=== PATIENT | male | born 1935 | race Caucasian/White ===

== ENCOUNTER 2017-04-20 11:22 | Inpatient (IN) | payer BC, MEDICARE ==
[~2017-04-20] VITALS: Ht 177.8 cm; Wt 67.1 kg
[~2017-04-20 11:22] MED LIST: AMLO10TA2 PO; ATOR10TA9 PO; CELE200C PO; HYDR-3342 PO; LEVO75TA5 PO; METO200T2 PO; METO25TA35 PO; Methocarbamol PO; NITR0.4T SL; OXYC1TAB7 PO; QUET25TA PO; SITA100T PO; VALS160T3 PO; VENL75TA PO
[2017-04-20] MEDS ORDERED: SODIUM CHLORIDE FLUSH 10ML SYR IVF PRN (12:00)
[2017-04-20] MEDS ORDERED: GLUC500T11 PO (12:02)
[2017-04-20] MEDS ORDERED: ATOR40TA PO (12:02)
[2017-04-20] MEDS ORDERED: CLOP75TA52 PO (12:02)
[2017-04-20] MEDS ORDERED: ASCO500T8 PO (12:02)
[2017-04-20] MEDS ORDERED: QUET50TA5 PO (12:02)
[2017-04-20] MEDS: SODIUM CHLORIDE 0.9% 1,000 ML IV SCH ×2 (12:22→20:22)
[2017-04-20] MEDS ORDERED: DEXTROSE 4 GM TAB.CHEW PO PRN (12:30)
[2017-04-20] MEDS ORDERED: ONDANSETRON 2MG/ML, 2ML IVPush PRN (12:30)
[2017-04-20] MEDS ORDERED: HYDROcodone/APAP 5/325 TABLET PO PRN (12:30)
[2017-04-20] MEDS: INSULIN ASPART 100 UNITS/ML, PEN SQ-INSULIN SCH ×3 (12:30→20:46)
[2017-04-20] MEDS ORDERED: GLUCAGON 1 MG IM PRN (12:30)
[2017-04-20] MEDS ORDERED: DEXTROSE 50%, 50ML SYRINGE IVPush PRN (12:30)
[2017-04-20] MEDS ORDERED: LABETALOL 5MG/ML, 20ML IVPush PRN (12:30)
[2017-04-20] MEDS ORDERED: ACETAMINOPHEN 325 MG TABLET PO PRN (12:30)
[2017-04-20] MEDS ORDERED: BISACODYL 10 MG SUPP PR PRN (12:30)
[2017-04-20] MEDS ORDERED: morphine SULFATE 10 MG/ML, 1ML IVPush PRN (12:30)
[2017-04-20] MEDS ORDERED: ENALAPRILAT 1.25 MG/ML, 2ML IVPush PRN (12:30)
[2017-04-20 13:31] LABS: BLOOD UREA NITROGEN 34 mg/dL (7-18)
[2017-04-20 19:52] VITALS: BP 148/70
[2017-04-20 19:55] VITALS: BP 146/70
[2017-04-20 19:58] VITALS: BP 134/70
[2017-04-20] MEDS: SODIUM CHLORIDE FLUSH 10ML SYR IVF SCH (20:45)
[2017-04-20] MEDS: ATORVASTATIN 40 MG TABLET PO SCH (20:46)
[2017-04-20] MEDS: DOCUSATE 100 MG CAPSULE PO SCH (20:46)
[2017-04-20] MEDS: QUETIAPINE 25MG TABLET PO SCH (20:46)
[2017-04-20 20:48] VITALS: BP 175/72
[2017-04-21] MEDS: SODIUM CHLORIDE 0.9% 1,000 ML IV SCH ×2 (00:26→09:44)
[2017-04-21 00:58] VITALS: BP 125/70
[2017-04-21] MEDS ORDERED: HALOPERIDOL 5 MG/ML IM ONE (01:30)
[2017-04-21] MEDS: LEVOTHYROXINE 75 MCG TABLET PO SCH ×2 (05:39→09:00)
[2017-04-21 05:46] LABS: HEMATOCRIT 38.3 % (39.2-51.8); WHITE BLOOD COUNT 7.3 x10^3/uL (3.4-10)
[2017-04-21 06:02] LABS: ASPARTATE AMINO TRANSFERASE 14 U/L (15-37); BLOOD UREA NITROGEN 29 mg/dL (7-18)
[2017-04-21] MEDS: INSULIN ASPART 100 UNITS/ML, PEN SQ-INSULIN SCH ×4 (07:00→21:00)
[2017-04-21 07:43] VITALS: BP 141/65
[2017-04-21] MEDS: ASCORBIC ACID 500 MG TABLET PO SCH (09:44)
[2017-04-21] MEDS: CLOPIDOGREL 75 MG TABLET PO SCH (09:44)
[2017-04-21] MEDS: DOCUSATE 100 MG CAPSULE PO SCH ×2 (09:44→22:03)
[2017-04-21] MEDS: POLYETHYLENE GLYCOL 17 GM PACKET PO SCH (09:44)
[2017-04-21] MEDS: SODIUM CHLORIDE FLUSH 10ML SYR IVF SCH ×2 (09:44→22:03)
[2017-04-21] MEDS ORDERED: HALOPERIDOL 5 MG/ML IM PRN (11:00)
[2017-04-21] MEDS: HEPARIN 5,000 UNITS/ML, 1ML SQ SCH ×2 (11:00→21:00)
[2017-04-21] MEDS: GABAPENTIN 100 MG CAPSULE PO SCH ×3 (11:00→22:03)
[2017-04-21 13:57] VITALS: BP 165/77
[2017-04-21 19:05] VITALS: BP 165/75
[2017-04-21] MEDS: OxyconTIN ER 10 MG TAB.ER PO SCH (22:02)
[2017-04-21] MEDS: QUETIAPINE 25MG TABLET PO SCH (22:02)
[2017-04-21] MEDS: ATORVASTATIN 40 MG TABLET PO SCH (22:03)
[2017-04-22 02:00] VITALS: BP 154/62
[2017-04-22] MEDS: HEPARIN 5,000 UNITS/ML, 1ML SQ SCH ×3 (04:55→21:00)
[2017-04-22] MEDS: GABAPENTIN 100 MG CAPSULE PO SCH ×4 (06:00→22:34)
[2017-04-22] MEDS: INSULIN ASPART 100 UNITS/ML, PEN SQ-INSULIN SCH ×4 (07:00→21:00)
[2017-04-22 08:59] VITALS: BP 136/73
[2017-04-22] MEDS: POLYETHYLENE GLYCOL 17 GM PACKET PO SCH (09:00)
[2017-04-22] MEDS: DOCUSATE 100 MG CAPSULE PO SCH ×2 (09:00→22:33)
[2017-04-22] MEDS: LEVOTHYROXINE 75 MCG TABLET PO SCH (09:00)
[2017-04-22] MEDS: CLOPIDOGREL 75 MG TABLET PO SCH (09:00)
[2017-04-22] MEDS: OxyconTIN ER 10 MG TAB.ER PO SCH (09:00)
[2017-04-22] MEDS: SODIUM CHLORIDE FLUSH 10ML SYR IVF SCH ×2 (09:00→22:34)
[2017-04-22] MEDS: ASCORBIC ACID 500 MG TABLET PO SCH (09:00)
[2017-04-22 14:01] VITALS: BP 144/56
[2017-04-22 20:00] VITALS: BP 162/71
[2017-04-22] MEDS: ATORVASTATIN 40 MG TABLET PO SCH (22:34)
[2017-04-22] MEDS: QUETIAPINE 25MG TABLET PO SCH (22:34)
[2017-04-22] MEDS: METHOCARBAMOL 500 MG TABLET PO PRN (22:37)
[2017-04-23] VITALS (11 sets, daily range): BP systolic 96–158; BP diastolic 45–83
[2017-04-23] MEDS ORDERED: SODIUM CHLORIDE 0.9% 1,000 ML IV SCH (04:00)
[2017-04-23] MEDS ORDERED: SODIUM CHLORIDE 0.9%, 250ML IVBOLUS ONE (04:00)
[2017-04-23] MEDS: HEPARIN 5,000 UNITS/ML, 1ML SQ SCH ×3 (05:00→21:00)
[2017-04-23] MEDS: GABAPENTIN 100 MG CAPSULE PO SCH ×5 (06:00→22:02)
[2017-04-23 06:07] LABS: BLOOD UREA NITROGEN 26 mg/dL (7-18)
[2017-04-23] MEDS: INSULIN ASPART 100 UNITS/ML, PEN SQ-INSULIN SCH ×4 (07:00→21:00)
[2017-04-23] MEDS: CLOPIDOGREL 75 MG TABLET PO SCH (08:08)
[2017-04-23] MEDS: ASCORBIC ACID 500 MG TABLET PO SCH (08:08)
[2017-04-23] MEDS: POLYETHYLENE GLYCOL 17 GM PACKET PO SCH (08:08)
[2017-04-23] MEDS: SODIUM CHLORIDE FLUSH 10ML SYR IVF SCH ×2 (08:09→21:00)
[2017-04-23] MEDS: LEVOTHYROXINE 75 MCG TABLET PO SCH (08:09)
[2017-04-23] MEDS: DOCUSATE 100 MG CAPSULE PO SCH ×2 (08:09→21:00)
[2017-04-23] MEDS: METHOCARBAMOL 500 MG TABLET PO PRN (22:01)
[2017-04-23] MEDS: QUETIAPINE 25MG TABLET PO SCH (22:02)
[2017-04-23] MEDS: ATORVASTATIN 40 MG TABLET PO SCH (22:02)
[2017-04-24] MEDS: SODIUM CHLORIDE 0.9% 1,000 ML IV SCH ×2 (01:11→10:00)
[2017-04-24 02:00] VITALS: BP 137/65
[2017-04-24] MEDS ORDERED: SODIUM CHLORIDE 0.9% 1,000 ML IV SCH (04:00)
[2017-04-24] MEDS: HEPARIN 5,000 UNITS/ML, 1ML SQ SCH ×3 (05:00→22:27)
[2017-04-24] MEDS: INSULIN ASPART 100 UNITS/ML, PEN SQ-INSULIN SCH ×4 (07:00→21:00)
[2017-04-24] MEDS: GABAPENTIN 100 MG CAPSULE PO SCH ×4 (07:00→22:26)
[2017-04-24 08:30] VITALS: BP 132/72
[2017-04-24] MEDS: DOCUSATE 100 MG CAPSULE PO SCH ×2 (09:00→22:26)
[2017-04-24] MEDS: CLOPIDOGREL 75 MG TABLET PO SCH (09:00)
[2017-04-24] MEDS: SODIUM CHLORIDE FLUSH 10ML SYR IVF SCH ×2 (09:00→22:29)
[2017-04-24] MEDS: LEVOTHYROXINE 75 MCG TABLET PO SCH (09:00)
[2017-04-24] MEDS: ASCORBIC ACID 500 MG TABLET PO SCH (09:00)
[2017-04-24] MEDS: POLYETHYLENE GLYCOL 17 GM PACKET PO SCH (09:00)
[2017-04-24 13:59] VITALS: BP 140/64
[2017-04-24 20:48] VITALS: BP 141/71
[2017-04-24] MEDS: ATORVASTATIN 40 MG TABLET PO SCH (22:26)
[2017-04-24] MEDS: QUETIAPINE 25MG TABLET PO SCH (22:26)
[2017-04-25 00:51] VITALS: BP 133/77
[2017-04-25] MEDS: HEPARIN 5,000 UNITS/ML, 1ML SQ SCH ×3 (06:30→22:00)
[2017-04-25] MEDS: GABAPENTIN 100 MG CAPSULE PO SCH ×5 (06:30→21:00)
[2017-04-25 07:18] VITALS: BP 151/64
[2017-04-25] MEDS: INSULIN ASPART 100 UNITS/ML, PEN SQ-INSULIN SCH ×4 (08:52→21:00)
[2017-04-25] MEDS: ASCORBIC ACID 500 MG TABLET PO SCH (09:00)
[2017-04-25] MEDS: LEVOTHYROXINE 75 MCG TABLET PO SCH (09:00)
[2017-04-25] MEDS: CLOPIDOGREL 75 MG TABLET PO SCH (09:00)
[2017-04-25] MEDS: DOCUSATE 100 MG CAPSULE PO SCH ×2 (09:00→21:00)
[2017-04-25] MEDS: POLYETHYLENE GLYCOL 17 GM PACKET PO SCH (09:03)
[2017-04-25] MEDS: SODIUM CHLORIDE FLUSH 10ML SYR IVF SCH ×2 (09:03→22:15)
[2017-04-25] MEDS ORDERED: ERGOCALCIFEROL 50,000 UNIT CAPSULE PO SCH (12:00)
[2017-04-25 12:18] VITALS: BP 142/68
[2017-04-25 20:19] VITALS: BP 128/58
[2017-04-25] MEDS: ATORVASTATIN 40 MG TABLET PO SCH (21:00)
[2017-04-25] MEDS: QUETIAPINE 25MG TABLET PO SCH (21:00)
[2017-04-25] MEDS ORDERED: MAALOX/HYOSCYAMINE/LIDOCAINE 45 ML BTL PO ONE (22:00)
[2017-04-26 02:27] VITALS: BP 137/56
[2017-04-26] MEDS: GABAPENTIN 100 MG CAPSULE PO SCH ×5 (06:12→21:55)
[2017-04-26] MEDS: HEPARIN 5,000 UNITS/ML, 1ML SQ SCH ×3 (06:12→21:57)
[2017-04-26] MEDS: INSULIN ASPART 100 UNITS/ML, PEN SQ-INSULIN SCH ×4 (07:23→21:00)
[2017-04-26] MEDS: CLOPIDOGREL 75 MG TABLET PO SCH (07:34)
[2017-04-26] MEDS: POLYETHYLENE GLYCOL 17 GM PACKET PO SCH (07:34)
[2017-04-26] MEDS: ASCORBIC ACID 500 MG TABLET PO SCH (07:34)
[2017-04-26] MEDS: DOCUSATE 100 MG CAPSULE PO SCH ×3 (07:34→21:55)
[2017-04-26] MEDS: LEVOTHYROXINE 75 MCG TABLET PO SCH (07:34)
[2017-04-26] MEDS: SODIUM CHLORIDE FLUSH 10ML SYR IVF SCH ×2 (07:35→21:00)
[2017-04-26 07:46] VITALS: BP 123/55
[2017-04-26 13:58] VITALS: BP 151/65
[2017-04-26] MEDS ORDERED: VENL25TA PO (17:23)
[2017-04-26] MEDS: QUETIAPINE 25MG TABLET PO SCH ×2 (21:00→21:55)
[2017-04-26] MEDS: ATORVASTATIN 40 MG TABLET PO SCH ×2 (21:00→21:55)
[2017-04-26 21:13] VITALS: BP 143/70
[2017-04-27 01:49] VITALS: BP 146/64
[2017-04-27] MEDS: INSULIN ASPART 100 UNITS/ML, PEN SQ-INSULIN SCH ×2 (05:41→11:00)
[2017-04-27] MEDS: GABAPENTIN 100 MG CAPSULE PO SCH ×2 (05:50→10:07)
[2017-04-27] MEDS: HEPARIN 5,000 UNITS/ML, 1ML SQ SCH ×2 (05:50→14:00)
[2017-04-27 07:18] VITALS: BP 127/69
[2017-04-27] MEDS: SODIUM CHLORIDE FLUSH 10ML SYR IVF SCH (10:06)
[2017-04-27] MEDS: POLYETHYLENE GLYCOL 17 GM PACKET PO SCH (10:06)
[2017-04-27] MEDS: ASCORBIC ACID 500 MG TABLET PO SCH (10:07)
[2017-04-27] MEDS: LEVOTHYROXINE 75 MCG TABLET PO SCH (10:07)
[2017-04-27] MEDS: DOCUSATE 100 MG CAPSULE PO SCH (10:07)
[2017-04-27] MEDS: CLOPIDOGREL 75 MG TABLET PO SCH (10:07)
[2017-04-27] MEDS ORDERED: BISA10SU65 PR (12:30)
[2017-04-27] MEDS ORDERED: INSU100I18 SQ-INSULIN (12:30)
[2017-04-27] MEDS ORDERED: ERGO500017 PO (12:30)
[2017-04-27] MEDS ORDERED: METH500T7 PO (12:30)
[2017-04-27] MEDS ORDERED: POLY17PO5 PO (12:30)
[2017-04-27] MEDS ORDERED: GABA-826 PO (12:30)
[2017-04-27] MEDS ORDERED: DOCU-131 PO (12:30)
[2017-04-27] MEDS ORDERED: TRAM50TA2 PO (12:30)
[2017-04-27 13:51] VITALS: BP 131/52
[2017-04-28] MEDS ORDERED: LEVOTHYROXINE 75 MCG TABLET PO SCH (06:00)
== END 2017-04-27 16:45 | DRG 542 ==
LOC: ED 11:32 → EDIP 11:44 → 4EST 14:58 → 4WST 04-23 17:06
PROVIDERS: ADMIT Internal Medicine; ATTEND Internal Medicine
DX: M48.56XA Collapsed vertebra, not elsewhere classified, lumbar region, initial encounter for fracture (principal); E43 Unspecified severe protein-calorie malnutrition; E11.65 Type 2 diabetes mellitus with hyperglycemia; E87.5 Hyperkalemia; F01.50 Vascular dementia, unspecified severity, without behavioral disturbance, psychotic disturbance, mood disturbance, and anxiety; I48.91 Unspecified atrial fibrillation; W18.30XA Fall on same level, unspecified, initial encounter; D72.829 Elevated white blood cell count, unspecified; E03.9 Hypothyroidism, unspecified; E78.5 Hyperlipidemia, unspecified; E55.9 Vitamin D deficiency, unspecified; F79 Unspecified intellectual disabilities; I10 Essential (primary) hypertension; J44.9 Chronic obstructive pulmonary disease, unspecified; K21.9 Gastro-esophageal reflux disease without esophagitis; K59.09 Other constipation; M48.061 Spinal stenosis, lumbar region without neurogenic claudication; Z85.118 Personal history of other malignant neoplasm of bronchus and lung; Z85.46 Personal history of malignant neoplasm of prostate; Z86.73 Personal history of transient ischemic attack (TIA), and cerebral infarction without residual deficits; Y93.89 Activity, other specified; Y92.89 Other specified places as the place of occurrence of the external cause; Z68.21 Body mass index [BMI] 21.0-21.9, adult
CPT/HCPCS: 36415; 71010; 72148; 80048; 80053; 81003; 82306; 82607; 82962; 83036; 83735; 84100; 84145; 84443; 85025; 93005; 93306; 99285; J1644; J1815; J2405; J1630; J7030; J7050